=== PATIENT | female | born 1955 | race Hispanic/Latino ===

== ENCOUNTER 2021-04-22 06:56 | Observation (INO) | payer MEDICARE ==
[2021-04-22] MEDS ORDERED: SODIUM CHLORIDE 0.9% 500 ML 500 ML IV SCH (08:00)
[2021-04-22 08:33] LABS: Basophils # (Auto) 0.1 K/mm3 (0.0-0.1); Basophils % (Auto) 1.9 % (0.0-1.8); Eosinophils # (Auto) 0.2 K/mm3 (0.0-0.4); Eosinophils % (Auto) 2.4 % (0.0-4.3); Hematocrit 36.5 % (30.3-42.9); Hemoglobin 11.8 gm/dl (10.1-14.3); Lymphocytes # (Auto) 1.5 K/mm3 (1.2-5.4); Lymphocytes % (Auto) 24.7 % (13.4-35.0); Mean Corpuscular HGB Conc 32 % (30-34); Mean Corpuscular Volume 86 fl (79-97); Monocytes # (Auto) 0.5 K/mm3 (0.0-0.8); Monocytes % (Auto) 7.7 % (0.0-7.3); Platelet Count 120 K/mm3 (140-440); Red Blood Count 4.23 M/mm3 (3.65-5.03); Red Cell Distribution Width 15.9 % (13.2-15.2)
[2021-04-22 08:49] LABS: BUN/Creatinine Ratio 14; Blood Urea Nitrogen 13 mg/dL (7-17); Calcium 8.6 mg/dL (8.4-10.2)
[2021-04-22 08:50] LABS: Hemolysis Index 10
[2021-04-22 08:58] LABS: INR 0.92 (0.87-1.13)
[2021-04-22] MEDS ORDERED: CLOPIDOGREL 75 MG TAB PO NR (08:58)
[2021-04-22 08:59] LABS: Partial Thromboplastin Time 27.5 Sec. (24.2-36.6)
[2021-04-22] MEDS ORDERED: HEPARIN/NS 5000 UNIT/500ML 1,000 ML IR ONE (09:51)
[2021-04-22] MEDS ORDERED: LIDOCAINE (2%) 20 MG/1 ML VIAL 20 ML MDV INFILTRATI ONE (09:52)
[2021-04-22] MEDS ORDERED: VERAPAMIL 5 MG/2 ML INJ ONE (09:52)
[2021-04-22] MEDS ORDERED: NITROGLYCERIN SYRINGE 3 ML ONE ×2 (09:52→10:52)
[2021-04-22] MEDS ORDERED: HEPARIN/NS 5000 UNIT/500ML 500 ML IR ONE (10:20)
[2021-04-22] MEDS: MIDAZOLAM 2 MG/2 ML INJ ONE ×3 (10:23→10:47)
[2021-04-22] MEDS: fentaNYL 100 MCG/2 ML INJ ONE ×3 (10:23→11:07)
[2021-04-22] MEDS: HEPARIN 10,000 UNITS/10 ML VIAL ONE ×2 (10:26→10:30)
[2021-04-22] MEDS ORDERED: TICAGRELOR 90 MG TAB ONE (10:45)
[2021-04-22] MEDS ORDERED: ALUM-MAG HYDROXIDE-SIMETHICONE 200-200-20MG/5ML ORAL LIQD 30 ML ONE (10:59)
[2021-04-22] MEDS ORDERED: TICAGRELOR 90 MG TAB PO ONE (11:19)
[2021-04-22] MEDS ORDERED: ALUM-MAG HYDROXIDE-SIMETHICONE 200-200-20MG/5ML ORAL LIQD 30 ML PO ONE (11:20)
--- NOTE | 2021-04-22 11:40 | Cardiac Catherization Report ---
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 Underwent PCI of RCA here with recurrent chest tightness, abnormal stress test at [facility] with apical ischemia. Chest pain is typical. She continues to smoke. Risks, benefits and alternatives discussed. She is referred for left heart catheterization. 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 Stefano's test in right hand is normal. 2 mL of 2% lidocaine used to anesthetize the right wrist. A standard 6-Syriac hydrophilic sheath used to cannulate the right radial artery via modified Seldinger technique. All exchanges performed to exchange a J-tip guidewire. JL3.5 catheter was used to engage the left main. No dampening or ventricularization. Cineangiography performed in all projections. JR4 catheter used to cross the aortic valve under fluoroscopic guidance. Left ventriculography was performed from 30-degree MAI and 30-degree VIETNAMESE projections via hand injections, catheter flushed. Manual pullback performed with continuous pressure monitoring. Catheter was used to engage the right coronary. No dampening or ventricularization. Cineangiography performed in all projections. Next, catheter removed from the body over wire. DATA: Aortic pressure is 110/70, LV pressure is 110, LVEDP of 18 mmHg. Left ventriculography reveals normal systolic performance, estimated ejection fraction 55-60%. No evidence of aortic stenosis. CORONARY ANATOMY: The patient remained in normal sinus rhythm throughout the procedure. CORONARY ANATOMY: This is a right dominant system. Right coronary is a moderate sized vessel, courses AV groove, distally bifurcates in the posterior and posterolateral branches. There is a stent patent in the mid right coronary. Scattered luminal irregularities; otherwise, no occlusive disease identified. The left main is short. No significant disease, bifurcates left anterior descending, left circumflex. Left circumflex, moderate sized vessel, courses AV groove. No significant disease. Scattered luminal irregularities. Maximal narrowing of 25% in the mid segment. LAD with long complex 90-95% stenosis in the proximal and mid TAJ 2 flow. This is clearly the culprit lesion. The patient with chest pain with angiography as well. At this point, we turned our attention to PCI. Heparin was given. Abnormal ACT confirmed. The patient is noted to be truly ALLERGIC TO ASPIRIN. Has already gotten Plavix, but given new PCP. We will load with Brilinta. Once ACT abnormal, we turned attention to PCI. An EBU 3.5 guide used to engage the left main without difficulty. We used a Trail wire to cross the lesion without difficulty. We used a Jack 2.75 x 26 stent in the mid segment, deployed at 10 SABA for 30 seconds. Excellent result. Next, we used a 2.75 x 22 Jack overlapping proximally to the proximal LAD and deployed at 12 SABA for 30 seconds. There is a waist in the distal segment of the initial stent in the mid segment. We postdilated with 3.0 x 15 noncompliant with excellent result and we also postdilated the overlap with a 3.0 x 15 noncompliant. IVUS was performed, multiple ___ were performed, which revealed a well-opposed and well-expanded stent. Excellent final result with TAJ 3 flow. No complications. The patient is also chest pain free. I directly supervised the administration of moderate sedation with fentanyl and Versed from 10:23 a.m. to 11:10 a.m. No immediate complications. CONCLUSIONS: 1. Severe and complex single vessel coronary artery disease with a 90-95% culprit mid and proximal LAD stenosis with TAJ 2 flow and chest pain during angiography. This also correlates with apical ischemia found on stress test. 2. Successful IVUS-guided percutaneous coronary intervention with placement of 2 overlapping drug-eluting stents (Jack 2.75 x 26, Jack 2.75 x 22) with excellent final angiographic and ultrasonographic results. 3. Mild nonobstructive disease in the left circumflex. 4. Patent mid RCA stent. 5. Preserved left ventricular systolic performance, estimated ejection fraction 55-60%. 6. No evidence of aortic stenosis. A standard radial care. The patient loaded with Brilinta. She has a true ASPIRIN ALLERGY and will be admitted overnight. Risk factor modification discussed. The patient absolutely needs to quit smoking. We will follow along. Discharge in a.m. I discussed the results of procedure at length with the patient, also reviewed the pictures with her. TID: [id number] RECEIPT: [id number] SBM/PUN
[2021-04-22] MEDS: HYDROcodone/ACETAMINOPHEN 5-325 MG TAB PO PRN ×2 (12:43→19:04)
[2021-04-22] MEDS ORDERED: ACETAMINOPHEN 325 MG TAB PO PRN (13:00)
--- NOTE | 2021-04-22 15:11 | Short Stay Summary ---
Short Stay Documentation Date of service: 04/22/21 - History H&P: obtained from office - Allergies and Medications Current Medications: Allergies aspirin Allergy (Verified 07/01/15 16:12) Angioedema erythromycin base Allergy (Verified 07/01/15 16:12) Nausea ketorolac tromethamine [From Toradol] Allergy (Verified 07/01/15 16:12) Nausea sulfamethoxazole [From Bactrim] Allergy (Verified 07/01/15 16:12) Nausea tramadol Allergy (Verified 07/01/15 16:12) Nausea trimethoprim [From Bactrim] Allergy (Verified 07/01/15 16:12) Nausea Home Medications Medication Instructions Recorded Confirmed Last Taken Type ALBUTEROL NEB's [Proventil 0.083% 2.5 mg IH TID PRN 04/22/21 04/22/21 04/01/21 History NEBS] Albuterol Sulfate [Proair 90 mcg IH Q8HR PRN 04/22/21 04/22/21 04/19/21 History Respiclick] AtorvaSTATin [Lipitor] 20 mg PO QAM 04/22/21 04/22/21 04/21/21 History Clopidogrel [Plavix] 75 mg PO QDAY 04/22/21 04/22/21 04/21/21 History Fluticasone [Flonase] 1 spray NS BID 04/22/21 04/22/21 04/21/21 History Fluticasone/Umeclidin/Vilanter 1 each IH DAILY 04/22/21 04/22/21 04/21/21 History [Trelegy Ellipta 100-62.5-25] Furosemide [Lasix TAB] 40 mg PO QDAY 04/22/21 04/22/21 04/21/21 History Gabapentin [Neurontin] 300 mg PO BID 04/22/21 04/22/21 04/21/21 History Levocetirizine Dihydrochloride 5 mg PO HS 04/22/21 04/22/21 04/21/21 History [Xyzal] Naproxen [Naprosyn] 500 mg PO Q12HR 04/22/21 04/22/21 04/21/21 History Nitroglycerin [Nitrostat] 0.4 mg SL Q5M PRN 04/22/21 04/22/21 01/20/21 History Potassium Chloride [K-Dur] 10 meq PO QDAY 04/22/21 04/22/21 04/21/21 History Promethazine HCl [Promethazine TAB] 12.5 mg PO Q4H PRN 04/22/21 04/22/21 04/21/21 History busPIRone [Buspar] 5 mg PO BID 04/22/21 04/22/21 04/21/21 History metFORMIN [Glucophage] 500 mg PO QDAY 04/22/21 04/22/21 04/21/21 History Active Medications Acetaminophen (Acetaminophen 325 Mg Tab) 650 mg PO Q4H PRN PRN Reason: Pain MILD(1-3)/Fever >100.5/CONROY Hydrocodone Bitart/Acetaminophen (Hydrocodone/Acetaminophen 5-325 Mg Tab) 1 each PO Q6H PRN PRN Reason: Pain, Moderate (4-6) Last Admin: 04/22/21 12:43 Dose: 1 each Documented by: Sodium Chloride (Nacl 0.9% 500 Ml) 500 mls @ 50 mls/hr IV DIRECT KARLOS Stop: 04/22/21 17:59 Last Admin: 04/22/21 08:30 Dose: 50 mls/hr Documented by: Ticagrelor (Ticagrelor 90 Mg Tab) 90 mg PO BID KARLOS - Physical exam Integumentary: other (clean,dry and intact, no beeding or hematoma) - Brief post op/procedure progress note Date of procedure: 04/22/21 Pre-op diagnosis: abnormal stress test Post-op diagnosis: other (CAD s/p PCI) Anesthesia: local Estimated blood loss: minimal - Hospital course Hospital course: LHC showed severe and complex single-vessel coronary artery disease with a 90 to 95% culprit mid and proximal LAD stenosis. Patient had successful PCI with 2 drug-eluting stents placed. Patient had patent mid RCA stent. Estimated EF 55 to 60%. - Disposition Condition at discharge: Good Disposition: 01 HOME / SELF CARE / HOMELESS Short Stay Discharge Plan Activity: advance as tolerated Diet: low fat, low cholesterol, low salt Wound: keep clean and dry, per your surgeon's advice Follow up with: ALEJANDRA PORTILLO MD [Primary Care Provider] - 7 Days Prescriptions: Ticagrelor [Brilinta] 90 mg PO BID 30 Days #60 tablet
--- NOTE | 2021-04-22 17:48 | Electrocardiograph Report ---
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
[2021-04-22] MEDS: TICAGRELOR 90 MG TAB PO SCH (22:00)
[2021-04-22] MEDS ORDERED: ALBUTEROL 2.5 MG/3 ML NEBU IH ONE (22:19)
[2021-04-23] MEDS: HYDROcodone/ACETAMINOPHEN 5-325 MG TAB PO PRN ×2 (02:42→08:52)
[2021-04-23] MEDS ORDERED: ALUM-MAG HYDROXIDE-SIMETHICONE 200-200-20MG/5ML ORAL LIQD 30 ML PO PRN (02:51)
[2021-04-23 05:14] LABS: Basophils # (Auto) 0.1 K/mm3 (0.0-0.1); Eosinophils # (Auto) 0.2 K/mm3 (0.0-0.4); Eosinophils % (Auto) 3.2 % (0.0-4.3); Hematocrit 39.8 % (30.3-42.9); Hemoglobin 12.7 gm/dl (10.1-14.3); Lymphocytes # (Auto) 1.4 K/mm3 (1.2-5.4); Lymphocytes % (Auto) 23.9 % (13.4-35.0); Mean Corpuscular HGB Conc 32 % (30-34); Mean Corpuscular Volume 87 fl (79-97); Monocytes # (Auto) 0.4 K/mm3 (0.0-0.8); Monocytes % (Auto) 6.7 % (0.0-7.3); Red Blood Count 4.58 M/mm3 (3.65-5.03)
[2021-04-23 05:15] LABS: Platelet Count 90 K/mm3 (140-440)
[2021-04-23 05:27] LABS: Blood Urea Nitrogen 13 mg/dL (7-17); Calcium 8.7 mg/dL (8.4-10.2); Hemolysis Index 23
[2021-04-23 05:28] LABS: BUN/Creatinine Ratio 19
[2021-04-23 06:03] LABS: Chol/HDL Ratio 2.28 %; HDL Cholesterol 56 mg/dL (40-59); LDL Cholesterol,Direct 68 mg/dL (50-130)
[2021-04-23] MEDS: TICAGRELOR 90 MG TAB PO SCH ×2 (08:52→09:07)
--- NOTE | 2021-04-23 09:04 | XRay Report ---
XR chest 1V ap INDICATION / CLINICAL INFORMATION: post pci. COMPARISON: None available. FINDINGS: SUPPORT DEVICES: None. HEART /PULMONARY VASCULATURE: No significant abnormality. LUNGS / PLEURA: No significant pulmonary or pleural abnormality. No pneumothorax. IMPRESSION: 1. No acute findings. Signer Name: Brad Melton MD Signed: 04/23/2021 8:59 AM Workstation Name: [id number]
[2021-04-23] MEDS ORDERED: PROMETHAZINE 25 MG TAB PO PRN (11:47)
[2021-04-23 13:32] VITALS: BP 155/86
--- NOTE | 2021-04-24 14:10 | Electrocardiograph Report ---
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
--- NOTE | 2021-04-28 18:29 | Electrocardiograph Report ---
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
== END 2021-04-23 14:33 | disposition home or self-care (01) ==
LOC: CATHLABREC 06:56 → 4A 11:54
PROVIDERS: ADMIT Internal Medicine; ATTEND Internal Medicine
DX: I25.10 Atherosclerotic heart disease of native coronary artery without angina pectoris (principal); R94.30 Abnormal result of cardiovascular function study, unspecified; R06.02 Shortness of breath
CPT/HCPCS: 36415; 71045; 80048; 80061; 84484; 85025; 85610; 85730; 92978; 93005; 93458; 94640; C1725; C1753; C1769; C1874; C1894; C9600; G0378; J1644; J2250; J3010; J7040; Q0169; 92928; Q9967